=== PATIENT | female | born 1930 | race Caucasian/White ===

== ENCOUNTER → 2017-04-27 | Outpatient (CLI) | payer MEDICARE, OTHER ==
[~2017-04-27] MED LIST: DENOSUMAB 60 MG/ML 1 ML SYRINGE SQ ONE
[2017-04-27 10:47] VITALS: BP 165/72; PULSE 85; RESP 16; TEMP 98.3
== END ==
LOC: PROCWHC3 10:22
PROVIDERS: ATTEND Family Medicine
DX: M81.0 Age-related osteoporosis without current pathological fracture (principal)
CPT/HCPCS: 96372; J0897

== ENCOUNTER → 2017-10-27 | Outpatient (CLI) | payer MEDICARE, OTHER ==
[2017-10-27 10:07] LABS: HCT 36.1 % (34.0-46.0); HGB 11.9 gm/dL (11.4-16.0); MCH 31.5 pg (25.0-35.0); MCHC 32.9 g/dL (31.0-37.0); MCV 95.7 fL (80.0-100.0); Mean Platelet Volume 7.9; Platelet Count 234 k/uL (150-450); RBC 3.77 m/uL (3.80-5.40); RDW 13.4 % (11.5-15.5); WBC 6.9 k/uL (3.8-10.6)
[2017-10-27 10:35] LABS: Albumin 4.2 g/dL (3.5-5.0); Calcium 10.1 mg/dL (8.4-10.2); INR 1.1 (<1.2); Partial Thromboplastin Time 22.5 sec (22.0-30.0); Potassium 3.9 mmol/L (3.5-5.1); Prothrombin Time 10.6 sec (9.0-12.0); Total Bilirubin 0.4 mg/dL (0.2-1.3); Total Protein 7.3 g/dL (6.3-8.2)
== END | disposition home or self-care (01) ==
LOC: LABPAT 09:14
PROVIDERS: ATTEND Orthopaedic Surgery
DX: Z01.818 Encounter for other preprocedural examination (principal); Z01.812 Encounter for preprocedural laboratory examination
CPT/HCPCS: 36415; 80053; 85027; 85610; 85730; 87070

== ENCOUNTER → 2017-10-27 | Outpatient (CLI) | payer MEDICARE, OTHER ==
[~2017-10-27] MED LIST changes: -DENOSUMAB 60 MG/ML 1 ML SYRINGE SQ ONE; +REGADENOSON 0.4 MG/5 ML SYRINGE IV ONE
--- NOTE | 2017-10-27 11:18 | EST ---
EXERCISE STRESS DATE OF SERVICE: 10/27/2017 AGE: 87 SEX: Female HT: 4'10" WT: 175 pounds PROTOCOL: Lexiscan Cardiolite STAGE: DURATION OF EXERCISE: HEART RATE REST: 86 BLOOD PRESSURE REST: 203/118 MAXIMUM HEART RATE ACHIEVED: 97 MAXIMUM BLOOD PRESSURE: 224/89 85% MPHR: 113 100% MPHR: 133 METS: INDICATIONS: Pre-op cardiac evaluation. CLINICAL INFORMATION: Baseline EKG shows sinus rhythm, normal axis, normal intervals. The patient was given intravenous Lexiscan as per protocol. Did not have chest pain or diagnostic ST-segment depression. CONCLUSIONS: 1. Negative stress test by EKG criteria. 2. Cardiolite portion of the stress test will be reported separately. MMODL / IJN: [id number] /
--- NOTE | 2017-10-27 15:02 | NM ---
EXAMINATION TYPE: NM stress lexiscan cardiolite DATE OF EXAM: 10/27/2017 COMPARISON: NONE HISTORY: Chest pain TECHNIQUE: After the intravenous administration of 10.21 mCi Tc 99m Sestamibi - Cardiolite resting S PECT images acquired 45 minutes post injection. The patient received 0.4mg Lexiscan, 28 mCi Tc 99m Sestamibi - Stress images obtained 30 minutes post injection FINDINGS: Review of stress and rest SPECT images demonstrates no distinct perfusion abnormality. Gated analysi s shows normal wall motion with an estimated left ventricular ejection fraction of 87 %. IMPRESSION: No scintigraphic evidence for reversible ischemia.
== END | disposition home or self-care (01) ==
LOC: RADNMMAIN 08:43
PROVIDERS: ATTEND Internal Medicine Cardiovascular Disease
DX: I25.119 Atherosclerotic heart disease of native coronary artery with unspecified angina pectoris (principal)
CPT/HCPCS: 93017; 78452; A9500; J2785

== ENCOUNTER 2017-11-13 10:31 | Inpatient (IN) | payer MEDICARE, OTHER ==
[2017-11-06 12:48] VITALS: BMI 36.3
[~2017-11-13 10:31] MED LIST changes: +DEXAMETHASONE SOD PHOSPHATE 10 MG/ML 1 ML VIAL IV ONE; +HYDROmorphone 0.5 MG/0.5 ML SYRINGE IVP PRN; +LIDOCAINE 1% 20 ML VIAL (10MG/ML) FOR IV START INTRADERMA PRN; +MELOXICAM 7.5 MG TAB PO ONE; +MIDAZOLAM 2 MG/2 ML VIAL IV PRN; +ONDANSETRON 4 MG/2 ML VIAL IVP ONE; -REGADENOSON 0.4 MG/5 ML SYRINGE IV ONE; +SCOPOLAMINE 1.5MG/72HR PATCH TRANSDERM ONE; +TRANEXAMIC ACID 1,000 MG in SODIUM CHLORIDE 0.9% 50 ML IVPB ONE; +ceFAZolin 2 GM in SODIUM CHLORIDE 0.9% 100 ML IVPB ONE; +ceFAZolin IN SWFI 2 GM/20 ML SYRINGE IVP ONE
[2017-11-13] MEDS: ACETAMINOPHEN TAB 500 MG TAB PO ONE ×2 (13:34→22:13)
[2017-11-13] MEDS: LACTATED RINGERS 1,000 ML IV SCH (13:58)
[2017-11-13] MEDS ORDERED: ROPIVACAINE 246.25 MG, EPINEPHrine 0.5 MG, KETOROLAC 30 MG, cloNIDine HCL/PF 80 MCG, WA... MISCELLANE ONE ×5 (15:40)
[2017-11-13] MEDS ORDERED: LACTATED RINGERS 1,000 ML IV ONE ×2 (17:03)
[2017-11-13] MEDS ORDERED: ACETAMINOPHEN TAB 325 MG TAB PO PRN (18:50)
[2017-11-13] MEDS ORDERED: HYDROcodone/APAP 5-325MG 1 EACH TAB PO PRN (18:50)
[2017-11-13] MEDS ORDERED: BISACODYL 10 MG SUPP RECTAL PRN (18:50)
[2017-11-13] MEDS ORDERED: NA PHOS,M-B/NA PHOS,DI-BA 133 ML ENEMA RECTAL PRN (18:50)
[2017-11-13] MEDS ORDERED: HYDROmorphone 4 MG/ML 1 ML SYRINGE IVP PRN ×4 (18:50)
[2017-11-13] MEDS ORDERED: MAGNESIUM HYDROXIDE 2,400 MG/10 ML CUP PO PRN (18:50)
[2017-11-13] MEDS ORDERED: NALOXONE 0.4 MG/ML 1 ML VIAL IV PRN (18:50)
--- NOTE | 2017-11-13 19:25 | XR ---
EXAMINATION TYPE: XR knee limited RT DATE OF EXAM: 11/13/2017 CLINICAL HISTORY: Right knee pain and arthritis status post total knee replacement. TECHNIQUE: Portable AP and crosstable lateral views of the right knee are obtained immediately posto peratively. COMPARISON: None FINDINGS: Metallic hardware from total right knee arthroplasty is seen and appears satisfactory in a lignment and position. There is evidence of recent surgery with diffuse subcutaneous gas and soft ti ssue swelling noted. IMPRESSION: METALLIC HARDWARE FROM TOTAL RIGHT KNEE ARTHROPLASTY IS SATISFACTORY IN ALIGNMENT.
[2017-11-13] MEDS: SENNOSIDES-DOCUSATE SODIUM 1 EACH TAB PO SCH (22:42)
[2017-11-13] MEDS: CYCLOBENZAPRINE 5 MG TAB PO SCH (22:44)
[2017-11-13] MEDS: ATORVASTATIN 10 MG TAB PO SCH (22:46)
[2017-11-13] MEDS: LATANOPROST 0.005% OPHTH DROPS 2.5 ML BTL RIGHT EYE SCH (22:46)
[2017-11-13] MEDS: HYDROcodone/APAP 5-325MG 1 EACH TAB PO PRN (22:47)
[2017-11-13] MEDS: LOSARTAN 25 MG TAB PO SCH (22:47)
[2017-11-13] MEDS: POTASSIUM CHLORIDE ER 10 MEQ TAB.ER.PRT PO SCH (22:47)
[2017-11-13] MEDS: rOPINIRole HCL 4 MG TABLET PO SCH (22:47)
--- NOTE | 2017-11-13 23:02 | CONS ---
CONSULTATION DATE OF CONSULTATION: 11/13/2017 REASON FOR CONSULTATION: Medical management requested by Dr. Lomeli. CONSULTATION: This is a pleasant 87-year-old patient of Dr. Stroud who undergone a right total knee arthroplasty. Post procedure, pain is controlled. No nausea or vomiting. Did tolerate her supper. No chest pain. Chronic stable medical conditions include GERD, hypertension, hypothyroid, restless legs syndrome, chronic lymphedema in both lower extremities, anxiety, hyperlipidemia, coronary artery disease with stent. REVIEW OF SYSTEMS: CONSTITUTIONAL: None. HEENT: None. RESPIRATORY: None. CARDIOVASCULAR: None. GASTROINTESTINAL: Heartburn. GENITOURINARY: None. MUSCULOSKELETAL: Arthritic pain in different joints. DERMATOLOGICAL: None. HEMATOLOGICAL: None. LYMPHATICS: Lower extremity lymphedema. PSYCHIATRY: Anxiety, controlled. NEUROLOGICAL: Restless legs syndrome. PAST MEDICAL HISTORY: 1. GERD. 2. Hypertension. 3. Osteoarthritis. 4. Hypothyroid. 5. Restless legs syndrome. 6. Gait dysfunction; uses a walker. 7. Bilateral lower extremity lymphedema. 8. Coronary artery disease with stent. 9. Anxiety. 10.Hyperlipidemia. PAST SURGICAL HISTORY: 1. Back surgery. 2. Cardiac cath with stent. 3. Joint replacement. 4. Cataract. 5. Left total knee. 6. Surgery on the lower extremity for veins. PAST PSYCH HISTORY: History of anxiety. SOCIAL HISTORY: Does not smoke or drink alcohol. Lives by herself. FAMILY HISTORY: Granddaughter had breast cancer. HOME MEDICATIONS: 1. Ultram 50 mg p.o. q.i.d. p.r.n. 2. Requip 4 mg p.o. at bedtime. 3. Prolia 1 dose IM as directed. 4. Potassium 10 mEq p.o. b.i.d. 5. Omeprazole 40 mg p.o. daily. 6. Movantik 25 mg p.o. daily. 7. Toprol XL 50 mg p.o. daily. 8. Mevacor 40 mg at bedtime. 9. Cozaar 25 mg p.o. at bedtime. 10.Synthroid 75 mcg p.o. daily. 11.Xalatan 0.005% one drop to right eye at bedtime. 12.Vicodin 5 one tablet q.6 p.r.n. 13.Hydrochlorothiazide 25 mg p.o. daily. 14.Lasix 40 mg p.o. daily. 15.Flexeril 5 mg at bedtime. 16.Vitamin D3 5000 units p.o. daily. 17.Caltrate 600 with vitamin D one tablet daily. 18.Fiorinal p.r.n. 19.Aspirin 81 mg p.o. daily. ALLERGIES: 1. IV CONTRAST DYE. 2. PENICILLIN. 3. SULFA. 4. BACTRIM. PHYSICAL EXAMINATION: Temperature 97.6, pulse 80, respiration 18, blood pressure 148/86, pulse ox 92% on 3 L. GENERAL APPEARANCE: Well built, BMI 36.4. Propped up. Comfortable, awake. EYES: Pupils equal. Conjunctivae normal. HEENT: External appearance of nose and ears normal. Oral cavity normal. NECK: Short, thick. JVD unable to assess. RESPIRATORY: Effort normal. LUNGS: Distant breath sounds. CARDIOVASCULAR: Heart sounds muffled. No edema. ABDOMEN: Soft, nontender. Liver and spleen not palpable. No mass palpable. LYMPHATIC: No lymph node palpable in neck or axillae. PSYCHIATRY: Alert and oriented x3. Mood and affect normal. NEUROLOGICAL: Pupils equal. Cranial nerves grossly intact. Power and sensation grossly intact. EXTREMITIES: Right knee in a dressing. INVESTIGATIONS: No blood work. Potassium 4.1. ASSESSMENT: 1. Right total knee arthroplasty. 2. Gastroesophageal reflux disease. 3. Essential hypertension. 4. Primary osteoarthritis. 5. Hypothyroid. 6. Restless legs syndrome. 7. Gait dysfunction; at baseline uses a walker. 8. Chronic bilateral lower extremity lymphedema. 9. Coronary artery disease with stent in place. 10.Anxiety not otherwise specified. 11.Hyperlipidemia. PLAN: Home medications to be resumed. Patient getting Arixtra for DVT prophylaxis. Pain control is in place. Care was discussed with the patient. Questions were answered. Patient should follow up with Dr. Stroud on discharge. Thank you, Dr. Lomeli. MMODL / IJN: [id number] /
[2017-11-14] MEDS: ceFAZolin IN SWFI 2 GM/20 ML SYRINGE IVP SCH ×2 (00:05→10:20)
[2017-11-14] MEDS: ONDANSETRON 4 MG/2 ML VIAL IVP PRN ×2 (00:05→12:06)
[2017-11-14] MEDS: HYDROcodone/APAP 5-325MG 1 EACH TAB PO PRN ×4 (04:10→22:00)
[2017-11-14] MEDS: LACTATED RINGERS 1,000 ML IV SCH (05:19)
[2017-11-14] MEDS: LEVOTHYROXINE 75 MCG TAB PO SCH (06:04)
[2017-11-14 07:29] LABS: Basophils % (A) 0 %; Eosinophils % (A) 0 %; HCT 33.2 % (34.0-46.0); HGB 10.5 gm/dL (11.4-16.0); Lymphocytes # (A) 1.1 k/uL (1.0-4.8); Lymphocytes % (A) 11 %; MCH 31.3 pg (25.0-35.0); MCHC 31.7 g/dL (31.0-37.0); MCV 98.7 fL (80.0-100.0); Mean Platelet Volume 7.6; Monocytes # (A) 0.7 k/uL (0-1.0); Monocytes % (A) 7 %; Neutrophils # (A) 8.1 k/uL (1.3-7.7); Neutrophils % (A) 80 %; Platelet Count 250 k/uL (150-450); RBC 3.37 m/uL (3.80-5.40); RDW 12.2 % (11.5-15.5); WBC 10.1 k/uL (3.8-10.6)
--- NOTE | 2017-11-14 08:16 | P.OP ---
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 Moderate osteoporosis right knee OPERATION: Right knee cemented total replacement arthroplasty. ANESTHESIA: Spinal ESTIMATED BLOOD LOSS: 150 ml. DIRECTOR UNDERWRITER SALES: Sarah Fregoso PA-C (assistance with: patient positioning, retraction, exposure, hemostasis, leg positioning, implantation, irrigation, closure, dressing) COMPLICATIONS: None apparent. COMPONENTS IMPLANTED: Persona system from [employer] INDICATIONS: Mrs. Levi is a 87 year old female with a history of right knee osteoarthritis and moderate genu valgum. The operation of knee replacement has been discussed at length in the office, as well as potential risks and complications. These are inclusive of, but not limited to: bleeding, infection , scarring, discomfort, blood vessel and nerve damage, need for further surgery , failure to relieve symptoms, persistence, recurrence, or worsening of problems , loosening, dislocation, wear, blood clot, pulmonary embolism, , gait dysfunction, stiffness, and other risks as discussed in the office. The patient elects to proceed and the consent form has been signed. PROCEDURE: The patient was taken to the operating room and positioned on the operating room table in the supine position. Anesthesia was initiated. Care was taken to make sure that all pressure points were adequately padded. The operative lower extremity was prepped and draped in the usual aseptic fashion using ChloraPrep. Ioban drape was used for the case and the patient received intravenous antibiotics within one hour of the incision. A pneumotourniquet and leg nuñez were used for the case. The limb was exsanguinated with an Esmarch bandage and the tourniquet was inflated to 350 mmHg. Time-out was called confirming the patients identity, side, procedure and administration of tranexamic acid and antibiotics. The incision was then created midline directly over the knee, carried down through skin and into the abundant subcutaneous tissues and down to fascia. Full thickness subcutaneous medial flap was developed. Medial parapatellar arthrotomy was performed and the interior of the knee was inspected. There was end-stage osteoarthritis of the knee with a mild to moderate genu valgum type deformity. Also noted was moderate to severe osteoporosis , as evidenced by diminished cortical bone density as well as moderate softening of the cancellus bone, discovered during the course of the operation. The fat pad was excised and limited proximal medial release on the tibia was completed using meticulous dissection. The anterior cruciate ligament was taken down. The exposure was excellent. The knee was flexed 90 degrees and the patella was retracted laterally. A spot was chosen on the femur approximately 1 cm anterior to the posterior cruciate ligament insertion and an intramedullary hole was created within the femur. The intramedullary guide was then set to 5 degrees of valgus. The distal cutting block was attached and pinned into position. An appropriate amount of distal femoral resection was set. The oscillating saw was then used to make the distal femoral cut. This cut was confirmed to be flat with the flat end of an osteotome. The retractors were placed around the tibia and the tibial surface was addressed. The angle and depth of resection was adjusted using an extramedullary cutting guide. The guide had a built-in 3 degree posterior slope cut. Once the cutting guide was adjusted appropriately and in line with the axis of the tibia and confirmed to be in good position in relation to the second metatarsal and transmalleolar axis, the tibial cut was then created with protection of the posterior neurovascular structures and the collateral ligaments. The tibial cut surface was removed and sized. Femoral sizing was then accomplished using anterior referencing. Care was taken to analyze the posterior condyles for signs of deficiency or severe wear, and adjustments to the guide were made, as appropriate. Moderate to severe posterior spurring was noted, as well as a moderately to severely tight posterior cruciate ligament which therefore was released, see below. 3 degree external rotation pins were placed. The cutting jig for the femur was applied to these pins. The planned cuts were further analyzed prior to performing them with the oscillating saw. No femoral notching was produced. Bone fragments were removed and the cut surfaces were finished, as necessary, with a reciprocating saw. Spacer block technique was then used to confirm that the flexion and extension gaps were equal. Soft tissue releases and adjustment of the tibial and/or femoral cuts were made, as necessary, until the gaps were equal. This included release of the posterior cruciate ligament, which was tight in this patient and , if left unreleased, would have resulted in poor kinematics and possibly early loosening. The femur was then further finished for a posterior cruciate ligament substituting component. Patellar resurfacing was performed using a reamer. The size of the required patellar component was estimated and the patellar surface was then reamed down to a residual thickness which would recreate the [place] thickness with the component. The placement of the patellar component was influenced by the degree of patellar subluxation, if any, noted on the preoperative x-rays. Prior to placing trial components, anesthetic solution consisting of ropivicaine with epinephrine, ketorolac, and clonidine was injected carefully and methodically in a grid pattern using aspiration technique into the soft tissue around the knee circumferentially, starting with the deeper tissues first and progressing to fascia, and then finally the skin/subcutaneous tissue. Particular care was taken when injecting the posterior capsule. The trial components were inserted. The tibial tray was allowed to self center and the patella was noted to track very well. The position of the tibial component was marked and the tibia was then finished for a stemmed tibial component. Cement was mixed on the back table and applied to the final components. Trial components were removed and the cut surfaces of the bone were pulse lavaged thoroughly and dried. Cement was then applied to the tibial surface and pressurized into the surface using finger pressurization technique. The tibial component was then applied and excess cement was removed after it was impacted securely and noted to be flush with the cut surface. In similar fashion, the cement was applied to the cut femoral surface, pressurized in using finger pressurization and the component was impacted into place. Excess cement was removed. The polyethylene spacer was then implanted and locked into position. The patellar component was then applied in similar technique and a patellar clamp was used to hold the patella in place as the cement hardened. Once the cement had fully hardened, the knee was reinspected. Any other cement extrusion was removed and final kinematic testing showed range of motion from 0 to 130 degrees with excellent stability, both medially and laterally and appropriate alignment of the leg. Patellar tracking was excellent. The knee was then thoroughly pulse lavaged with normal saline. The tourniquet was deflated and hemostasis was obtained with electrocautery and IV tranexamic acid, 1 g given at the start of the operation and 1 g at the start of closure. Closure was with #2 Ethibond in the fascia and supplemented with #2 Quill, 2-0 Vicryl suture was used for the subcutaneous tissues and 3-0 Quill for the skin. Dermabond/Steri-Strips were then applied. A lightly compressive dressing was applied using Webril and an Albino wrap. The patient was then transferred to [facility] and taken to the recovery room in stable condition. Sponge and needle counts were correct.
[2017-11-14] MEDS: METOPROLOL SUCCINATE (ER) 50 MG TAB.ER.24H PO SCH (09:20)
[2017-11-14] MEDS: PANTOPRAZOLE 40 MG TABLET PO SCH (09:21)
[2017-11-14] MEDS: MELOXICAM 7.5 MG TAB PO SCH (09:21)
[2017-11-14] MEDS: FUROSEMIDE 40 MG TAB PO SCH (09:21)
[2017-11-14] MEDS: POTASSIUM CHLORIDE ER 10 MEQ TAB.ER.PRT PO SCH ×2 (09:22→22:01)
[2017-11-14] MEDS: FONDAPARINUX 2.5 MG/0.5 ML SYRINGE SQ SCH (09:22)
[2017-11-14] MEDS: Naloxegol Oxalate [Movantik] 25 MG PO SCH (09:22)
--- NOTE | 2017-11-14 10:56 | P.PN ---
Subjective Progress Note Date: 11/14/17 Principal diagnosis: Status post right total knee arthroplasty This is a 87 year-old female post right total knee arthroplasty. This is post- op day 1. The patient was evaluated in the recliner chair at the bedside today. The patient denies nausea, vomiting, abdominal pain, shortness of breath , and chest pain this morning. She states her pain is controlled at this time. The patient has been up with physical therapy. Objective - Vital Signs Vital signs: Vital Signs Temp 98.3 F 11/14/17 07:00 Pulse 75 11/14/17 07:00 Resp 14 11/14/17 07:00 BP 157/69 11/14/17 07:00 Pulse Ox 97 11/14/17 07:00 Intake & Output 11/13/17 11/14/17 11/14/17 18:59 06:59 18:59 Intake Total 1700 240 Output Total 150 Balance 1550 240 Intake: IV 1700 0 Intake, IV Titration 240 Amount Lactated Ringers 1,000 ml 240 @ 20 mls/hr IV .Q24H FREDRICK Rx#:[id number] Output: Estimated Blood Loss 150 Other: # Voids 1 - Exam The patient does not appear in acute distress. Alert and orientated x3. Dressing is clean dry and intact. Incision appears fine with no erythema or active drainage. Calf is soft and nontender. Good foot and ankle motion without difficulty. Sensation and circulatory status is intact. - Labs CBC & Chem 7: 11/14/17 06:39 11/13/17 13:50 Labs: Abnormal Lab Results - Last 24 Hours (Table) 11/14/17 Range/Units 06:39 RBC 3.37 L (3.80-5.40) m/uL Hgb 10.5 L (11.4-16.0) gm/dL Hct 33.2 L (34.0-46.0) % Neutrophils # 8.1 H (1.3-7.7) k/uL Assessment and Plan (1) Primary localized osteoarthritis of right knee Current Visit: Yes Status: Acute Code(s): M17.11 - UNILATERAL PRIMARY OSTEOARTHRITIS, RIGHT KNEE SNOMED Code(s): 527740963 (2) Status post total right knee replacement Current Visit: Yes Status: Acute Code(s): Z96.651 - PRESENCE OF RIGHT ARTIFICIAL KNEE JOINT SNOMED Code(s): 7831975213909 Plan: 1. Continue pain control 2. Anticoagulation with Arixtra 3. Continue physical therapy and ambulation 4. Anticipate discharge to skilled rehab on
--- NOTE | 2017-11-14 12:57 | XR ---
EXAMINATION TYPE: XR chest 1V DATE OF EXAM: 11/14/2017 COMPARISON: NONE HISTORY: Pain TECHNIQUE: Single frontal view of the chest is obtained. FINDINGS: Severe arthropathy of the shoulders greater on the right. Subsegmental consolidation at javed th lung bases. Atherosclerotic change aorta. No pneumothorax. Could not exclude small nodules in the right midlung. IMPRESSION: 1. Bibasilar atelectasis or early infiltrate. 2. Question of right-sided pulmonary nodules. CT chest recommended.
[2017-11-14] MEDS ORDERED: CALCIUM CARBONATE 500 MG CHEWABLE PO PRN (14:11)
[2017-11-14] MEDS: ATORVASTATIN 10 MG TAB PO SCH (22:00)
[2017-11-14] MEDS: CYCLOBENZAPRINE 5 MG TAB PO SCH (22:01)
[2017-11-14] MEDS: LOSARTAN 25 MG TAB PO SCH (22:01)
[2017-11-14] MEDS: rOPINIRole HCL 4 MG TABLET PO SCH (22:01)
[2017-11-14] MEDS: SENNOSIDES-DOCUSATE SODIUM 1 EACH TAB PO SCH (22:01)
[2017-11-14] MEDS: LATANOPROST 0.005% OPHTH DROPS 2.5 ML BTL RIGHT EYE SCH (22:10)
--- NOTE | 2017-11-15 01:39 | PN ---
PROGRESS NOTE DATE OF SERVICE: 11/14/17 PRESENTING COMPLAINT: Knee surgery. INTERVAL HISTORY: Patient is status post right knee surgery, doing better. No new events. Did work with therapy. No chest pain. Did tolerate a diet. REVIEW OF SYSTEMS: Done for constitutional, cardiovascular, GI, pulmonary, relevant findings as above. CURRENT MEDICATIONS: Reviewed. EXAMINATION: Temperature 97.9, pulse 65, respiratory rate 16, blood pressure 166/81, pulse ox 95% on room air. General appearance: Sitting up comfortable. Eyes: Pupils equal. Conjunctivae are normal. HEENT: External appearance of nose and ears normal. Oral cavity normal. Neck JVD not raised. Mass not palpable. Respiratory effort normal. Lungs are clear. Cardiovascular: Heart sounds muffled, no edema. ABDOMEN: Soft. Liver and spleen not palpable. Psychiatry: Alert and oriented x3. Mood and affect normal. INVESTIGATIONS: White count 10.1, hemoglobin 10.5. ASSESSMENT: 1. Right total knee arthroplasty. 2. Gastroesophageal reflux disease. 3. Essential hypertension. 4. Primary osteoarthritis. 5. Hypothyroid. 6. Restless legs syndrome. 7. Gait dysfunction at baseline uses a walker. 8. Chronic bilateral lower extremity lymphedema. 9. Coronary artery disease with prior history of stent. 10.Anxiety, not otherwise specified. 11.Hyperlipidemia. PLAN: Patient is stable. Continue current medication and treatment plan. Should follow with family doctor upon discharge. MMODL / IJN: [id number] /
[2017-11-15] MEDS: HYDROcodone/APAP 5-325MG 1 EACH TAB PO PRN ×3 (06:01→22:44)
[2017-11-15] MEDS: hydrOXYzine PAMOATE 25 MG CAP PO PRN ×3 (06:01→22:44)
[2017-11-15] MEDS: LEVOTHYROXINE 75 MCG TAB PO SCH (06:01)
[2017-11-15 07:34] LABS: Basophils # (A) 0.1 k/uL (0-0.2); Basophils % (A) 1 %; Eosinophils # (A) 0.1 k/uL (0-0.7); Eosinophils % (A) 1 %; HCT 33.9 % (34.0-46.0); HGB 10.8 gm/dL (11.4-16.0); Lymphocytes # (A) 1.2 k/uL (1.0-4.8); Lymphocytes % (A) 13 %; MCH 30.8 pg (25.0-35.0); MCHC 31.8 g/dL (31.0-37.0); MCV 96.8 fL (80.0-100.0); Mean Platelet Volume 7.5; Monocytes # (A) 0.8 k/uL (0-1.0); Monocytes % (A) 9 %; Neutrophils # (A) 6.6 k/uL (1.3-7.7); Neutrophils % (A) 75 %; Platelet Count 217 k/uL (150-450); RDW 12.3 % (11.5-15.5); WBC 8.9 k/uL (3.8-10.6)
[2017-11-15] MEDS: LACTATED RINGERS 1,000 ML IV SCH (08:54)
[2017-11-15] MEDS: METOPROLOL SUCCINATE (ER) 50 MG TAB.ER.24H PO SCH (09:48)
[2017-11-15] MEDS: PANTOPRAZOLE 40 MG TABLET PO SCH (09:48)
[2017-11-15] MEDS: POTASSIUM CHLORIDE ER 10 MEQ TAB.ER.PRT PO SCH ×2 (09:48→21:35)
[2017-11-15] MEDS: Naloxegol Oxalate [Movantik] 25 MG PO SCH (09:49)
[2017-11-15] MEDS: FONDAPARINUX 2.5 MG/0.5 ML SYRINGE SQ SCH (09:49)
[2017-11-15] MEDS: FUROSEMIDE 40 MG TAB PO SCH (09:49)
[2017-11-15] MEDS: MELOXICAM 7.5 MG TAB PO SCH (09:49)
--- NOTE | 2017-11-15 11:48 | P.PN ---
Subjective Progress Note Date: 11/15/17 Principal diagnosis: Status post total right knee arthroplasty. This is an 87-year-old female who is status post total right knee arthroplasty. She is doing well from an orthopedic standpoint. She is rating her pain 5/10 today. She has no new complaints or concerns. Objective - Vital Signs Vital signs: Vital Signs Temp 98.2 F 11/15/17 07:00 Pulse 97 11/15/17 07:00 Resp 16 11/15/17 07:00 BP 177/76 11/15/17 07:00 Pulse Ox 93 L 11/15/17 07:00 Intake & Output 11/14/17 11/15/17 11/15/17 18:59 06:59 18:59 Intake Total 880 400 Balance 880 400 Intake: Oral 880 400 Other: Voiding Method Bedside Commode # Voids 3 2 - Exam This is a pleasant 87-year-old female in no acute distress. She is alert and oriented 3. Exam of the right knee reveals that her dressing is clean, dry and intact. She has full foot and ankle motion without difficulty or pain. There is no calf pain with palpation. Neurovascular status to the lower extremity is intact. - Labs CBC & Chem 7: 11/15/17 06:48 11/13/17 13:50 Labs: Abnormal Lab Results - Last 24 Hours (Table) 11/15/17 Range/Units 06:48 RBC 3.50 L (3.80-5.40) m/uL Hgb 10.8 L (11.4-16.0) gm/dL Hct 33.9 L (34.0-46.0) % Assessment and Plan (1) Osteoarthritis of right knee Current Visit: Yes Status: Acute Code(s): M17.11 - UNILATERAL PRIMARY OSTEOARTHRITIS, RIGHT KNEE SNOMED Code(s): 163241665885408 (2) Status post total right knee replacement Current Visit: Yes Status: Acute Code(s): Z96.651 - PRESENCE OF RIGHT ARTIFICIAL KNEE JOINT SNOMED Code(s): 7551335243058 Plan: The clinical findings are discussed the patient. We're awaiting transfer to inpatient rehab, most likely tomorrow. Continue care and physical therapy.
[2017-11-15] MEDS ORDERED: HYDROmorphone 2 MG TAB PO PRN ×3 (15:41→15:43)
[2017-11-15] MEDS ORDERED: HYDROmorphone 4 MG TABLET PO PRN (15:44)
[2017-11-15] MEDS: ATORVASTATIN 10 MG TAB PO SCH (21:35)
[2017-11-15] MEDS: rOPINIRole HCL 4 MG TABLET PO SCH (21:35)
[2017-11-15] MEDS: LATANOPROST 0.005% OPHTH DROPS 2.5 ML BTL RIGHT EYE SCH (21:35)
[2017-11-15] MEDS: LOSARTAN 25 MG TAB PO SCH (21:35)
[2017-11-15] MEDS: CYCLOBENZAPRINE 5 MG TAB PO SCH (21:35)
[2017-11-15] MEDS: SENNOSIDES-DOCUSATE SODIUM 1 EACH TAB PO SCH (21:36)
--- NOTE | 2017-11-15 23:44 | PN ---
PROGRESS NOTE DATE OF SERVICE: 11/15/2017 PRESENTING COMPLAINT: Knee surgery. INTERVAL HISTORY: Patient is status post right knee surgery. Continues to do better. No new issues. Tolerating a diet. Did work with Therapy. REVIEW OF SYSTEMS: Done for constitutional, cardiovascular, GI, pulmonary, musculoskeletal; relevant findings as above. CURRENT MEDICATIONS: Reviewed. EXAMINATION: Temperature 99, pulse 76, respirations 16, blood pressure 164/74, pulse ox 100%. GENERAL APPEARANCE: Propped up comfortable. EYES: Pupils equal. Conjunctivae normal. HEENT: External appearance of nose and ears normal. Oral cavity normal. NECK: JVD not raised. Mass not palpable. RESPIRATORY: Effort normal. Lungs are clear. CARDIOVASCULAR: Heart sounds muffled. No edema. ABDOMEN: Soft, nontender. Liver and spleen not palpable. PSYCHIATRY: Alert and oriented x3. Mood and affect normal. INVESTIGATIONS: Hemoglobin 10.8. ASSESSMENT: 1. Right total knee arthroplasty. 2. Gastroesophageal reflux disease. 3. Essential hypertension. 4. Primary osteoarthritis. 5. Hypothyroid. 6. Restless legs syndrome. 7. Gait dysfunction, at her baseline uses a walker. 8. Chronic bilateral lower extremity lymphedema. 9. Coronary artery disease with prior history of stent. 10.Anxiety, not otherwise specified. 11.Hyperlipidemia. PLAN: Continue current medication and treatment plan. Care was discussed with the patient. MMJAIMEL / REDDYN: [id number] /
[2017-11-16 01:46] VITALS: TEMP 98.3
[2017-11-16] MEDS: LACTATED RINGERS 1,000 ML IV SCH (01:52)
[2017-11-16] MEDS: LEVOTHYROXINE 75 MCG TAB PO SCH (05:39)
[2017-11-16] MEDS: HYDROcodone/APAP 5-325MG 1 EACH TAB PO PRN ×2 (06:56→13:53)
[2017-11-16] MEDS: hydrOXYzine PAMOATE 25 MG CAP PO PRN ×2 (06:56→13:53)
[2017-11-16 07:03] LABS: Basophils # (A) 0.1 k/uL (0-0.2); Basophils % (A) 1 %; Eosinophils # (A) 0.3 k/uL (0-0.7); Eosinophils % (A) 4 %; HCT 33.5 % (34.0-46.0); HGB 10.7 gm/dL (11.4-16.0); Lymphocytes # (A) 1.4 k/uL (1.0-4.8); Lymphocytes % (A) 16 %; MCH 30.4 pg (25.0-35.0); MCV 94.9 fL (80.0-100.0); Mean Platelet Volume 7.6; Monocytes # (A) 0.8 k/uL (0-1.0); Monocytes % (A) 10 %; Neutrophils # (A) 5.5 k/uL (1.3-7.7); Neutrophils % (A) 66 %; Platelet Count 221 k/uL (150-450); RBC 3.53 m/uL (3.80-5.40); RDW 12.2 % (11.5-15.5); WBC 8.3 k/uL (3.8-10.6)
--- NOTE | 2017-11-16 08:02 | P.DS ---
Providers Date of admission: 11/13/17 13:09 Expected date of discharge: 11/16/17 Attending physician: Bradley Lomeli Consults: 11/13/17 18:50 Consult Physician Routine Consulting Provider: Earl Echeverria Consult Reason/Comments: Medical Management Do you want consulting provider notified?: Yes Primary care physician: Jaskaran Stroud - Discharge Diagnosis(es) (1) Osteoarthritis of right knee Current Visit: Yes Status: Acute (2) Status post total right knee replacement Current Visit: Yes Status: Acute Hospital Course: This is an 87-year-old female who was last seen with complaint of continued right knee pain. The patient has a known history of degenerative arthritis of the right knee and presents to discuss surgical options. After discussion and consideration the patient elects to proceed with total right knee arthroplasty. The patient is seen preoperatively by Dr. Stroud and cleared for surgery. The patient is admitted to [facility] for total right knee arthroplasty. The procedure is performed without complication or sequelae. Patient is fairly doing well postoperatively. She is having some difficulty with independent ADLs and independent ambulation. Vital signs are stable at discharge. Labs are stable at discharge. It is recommended that she go to inpatient rehab. The patient is discharged to inpatient rehab on postop day #3 pending medical clearance. Please see orders and refer to the med rec for accurate list of medications. Plan - Discharge Summary Discharge Rx Participant: Yes New Discharge Prescriptions: New Aspirin 325 mg PO BID #120 tab Fondaparinux [Arixtra] 2.5 mg SQ DAILY #5 syringe HYDROcodone/APAP 5-325MG [[place] 5-325] 1 - 2 each PO Q4-6H PRN #90 tab PRN Reason: Pain Sennosides-Docusate Sodium [Senokot-S] 1 tab PO BID #60 tablet No Action Metoprolol Succinate (ER) [Toprol Xl] 50 mg PO DAILY Hydrochlorothiazide [Hydrodiuril] 25 mg PO DAILY traMADol HCL [Ultram] 50 mg PO QID PRN PRN Reason: Pain Naloxegol Oxalate [Movantik] 25 mg PO DAILY Lovastatin [Mevacor] 40 mg PO HS Hydrocodone/Acetaminophen [Vicodin 5-300 mg Tablet] 1 tab PO Q6HR PRN PRN Reason: Pain rOPINIRole HCL [Requip] 4 mg PO HS Levothyroxine Sodium [Synthroid] 75 mcg PO DAILY Cyclobenzaprine [Flexeril] 5 mg PO HS Butalb/Asprin/Caff 50-325-40Mg [Fiorinal 50-325-40 MG] 1 - 2 cap PO DIRECTED PRN PRN Reason: Pain Potassium Chloride ER [K-Dur 10] 10 meq PO BID Losartan [Cozaar] 25 mg PO HS Latanoprost Ophth [Xalatan 0.005%] 1 drops RIGHT EYE HS Cholecalciferol [Vitamin D3] 5,000 unit PO DAILY Prolia (Unknown Dose) 1 dose IM DIRECTED Omeprazole 40 mg PO DAILY Spike/D3/Mag11/Zinc/Carrot Tier/Raffi/Bor [Caltrate 600+D Plus Tablet] 1 each PO DAILY Aspirin [Adult Low Dose Aspirin EC] 81 mg PO DAILY Furosemide [Lasix] 40 mg PO DAILY Discharge Medication List Aspirin [Adult Low Dose Aspirin EC] 81 mg PO DAILY 11/06/17 [History] Butalb/Asprin/Caff 50-325-40Mg [Fiorinal 50-325-40 MG] 1 - 2 cap PO DIRECTED PRN 11/06/17 [History] Spike/D3/Mag11/Zinc/Carrot Tier/Raffi/Bor [Caltrate 600+D Plus Tablet] 1 each PO DAILY [History] Cholecalciferol [Vitamin D3] 5,000 unit PO DAILY 11/06/17 [History] Cyclobenzaprine [Flexeril] 5 mg PO HS 11/06/17 [History] Furosemide [Lasix] 40 mg PO DAILY 11/06/17 [History] Hydrochlorothiazide [Hydrodiuril] 25 mg PO DAILY 11/06/17 [History] Hydrocodone/Acetaminophen [Vicodin 5-300 mg Tablet] 1 tab PO Q6HR PRN 11/06/17 [ History] Latanoprost Ophth [Xalatan 0.005%] 1 drops RIGHT EYE HS 11/06/17 [History] Levothyroxine Sodium [Synthroid] 75 mcg PO DAILY 11/06/17 [History] Losartan [Cozaar] 25 mg PO HS 11/06/17 [History] Lovastatin [Mevacor] 40 mg PO HS 11/06/17 [History] Metoprolol Succinate (ER) [Toprol Xl] 50 mg PO DAILY 11/06/17 [History] Naloxegol Oxalate [Movantik] 25 mg PO DAILY 11/06/17 [History] Omeprazole 40 mg PO DAILY 11/06/17 [History] Potassium Chloride ER [K-Dur 10] 10 meq PO BID 11/06/17 [History] Prolia (Unknown Dose) 1 dose IM DIRECTED 11/06/17 [History] rOPINIRole HCL [Requip] 4 mg PO HS 11/06/17 [History] traMADol HCL [Ultram] 50 mg PO QID PRN 11/06/17 [History] Aspirin 325 mg PO BID #120 tab 11/15/17 [Rx] Fondaparinux [Arixtra] 2.5 mg SQ DAILY #5 syringe 11/15/17 [Rx] HYDROcodone/APAP 5-325MG [[place] 5-325] 1 - 2 each PO Q4-6H PRN #90 tab 11/15/17 [Rx] Sennosides-Docusate Sodium [Senokot-S] 1 tab PO BID #60 tablet 11/15/17 [Rx] Follow up Appointment(s)/Referral(s): Sarah Fregoso, PAC [PHYSICIAN [employer]ER] - 2 Weeks Ambulatory/Diagnostic Orders: Continuous Passive Motion (CPM) Machine [DME.AMB1] Time Frame: 3 Weeks, Facility : [facility], Location: Case Management Activity/Diet/Wound Care/Special Instructions: May bear weight as tolerated with walker. CPM 5-6 hours daily. May shower if no drainage from incision. Discharge Disposition: TRANSFER TO SNF/ECF
[2017-11-16 08:18] VITALS: BP 154/85; PULSE 90; RESP 16
[2017-11-16] MEDS: METOPROLOL SUCCINATE (ER) 50 MG TAB.ER.24H PO SCH (09:04)
[2017-11-16] MEDS: MELOXICAM 7.5 MG TAB PO SCH (09:04)
[2017-11-16] MEDS: PANTOPRAZOLE 40 MG TABLET PO SCH (09:04)
[2017-11-16] MEDS: FONDAPARINUX 2.5 MG/0.5 ML SYRINGE SQ SCH (09:05)
[2017-11-16] MEDS: FUROSEMIDE 40 MG TAB PO SCH (09:05)
[2017-11-16] MEDS: POTASSIUM CHLORIDE ER 10 MEQ TAB.ER.PRT PO SCH (09:07)
[2017-11-16] MEDS: Naloxegol Oxalate [Movantik] 25 MG PO SCH (10:19)
--- NOTE | 2017-11-17 19:16 | PN ---
PROGRESS NOTE DATE OF SERVICE: 11/16/17 PRESENTING COMPLAINT: Knee surgery. INTERVAL HISTORY: This patient was seen by me on 11/16/17. Status post right knee surgery, feeling better tolerating a diet did work with therapy. No chest pain or short of breath. REVIEW OF SYSTEMS: Done for constitutional, cardiovascular, GI, pulmonary, musculoskeletal; relevant findings as above. CURRENT MEDICATIONS: Reviewed in the electronic records. PHYSICAL EXAMINATION: Temperature 98.3, pulse 90, respiration 16, blood pressure 154/85, pulse ox 94% on room air. General appearance: Sitting up comfortable. EYES: Pupils equal. Conjunctivae normal. HEENT external appearance of nose and ears normal. Oral cavity normal. Neck JVD not raised. Mass not palpable. Respiratory effort: Lungs are clear. Cardiovascular. HEART: Heart sounds muffled. No edema. ABDOMEN: Soft, nontender. Liver and spleen not palpable. Psychiatry: Alert and oriented times three. Mood and affect normal. INVESTIGATIONS: Hemoglobin 10.7. ASSESSMENT: 1. Right total knee arthroplasty. 2. Gastroesophageal reflux disease. 3. Essential hypertension. 4. Primary osteoarthritis. 5. Hypothyroid. 6. Restless legs syndrome. 7. Gait dysfunction at baseline uses a walker. 8. Chronic bilateral lower extremity lymphedema. 9. Coronary artery disease, prior history of stent. 10.Anxiety, not otherwise specified. 11.Hyperlipidemia. PLAN: Care was discussed with the patient. She is doing well. Continue current medications. MMODL / IJN: [id number] /
== END 2017-11-16 14:20 | DRG 470 ==
LOC: 2ORMAIN 13:09 → 3SUR 18:40
PROVIDERS: ADMIT Orthopaedic Surgery; ATTEND Orthopaedic Surgery
PROC: 0SRC0J9 Replacement of Right Knee Joint with Synthetic Substitute, Cemented, Open Approach (ICD-10-PCS; principal; 2017-11-13 14:45)
DX: M17.11 Unilateral primary osteoarthritis, right knee (principal); E03.9 Hypothyroidism, unspecified; E78.5 Hyperlipidemia, unspecified; F41.9 Anxiety disorder, unspecified; G25.81 Restless legs syndrome; I10 Essential (primary) hypertension; I25.10 Atherosclerotic heart disease of native coronary artery without angina pectoris; I89.0 Lymphedema, not elsewhere classified; K21.9 Gastro-esophageal reflux disease without esophagitis; M21.061 Valgus deformity, not elsewhere classified, right knee; M81.0 Age-related osteoporosis without current pathological fracture; R26.9 Unspecified abnormalities of gait and mobility; Z79.82 Long term (current) use of aspirin; Z79.899 Other long term (current) drug therapy; Z95.5 Presence of coronary angioplasty implant and graft; Z96.652 Presence of left artificial knee joint; Z88.0 Allergy status to penicillin; Z88.2 Allergy status to sulfonamides; Z88.1 Allergy status to other antibiotic agents; Z91.041 Radiographic dye allergy status
CPT/HCPCS: 71045; 84132; 85025; 88300; 94760

== ENCOUNTER → 2018-05-07 | Outpatient (CLI) | payer MEDICARE, OTHER ==
[~2018-05-07] MED LIST changes: +DENOSUMAB 60 MG/ML 1 ML SYRINGE SQ ONE; -DEXAMETHASONE SOD PHOSPHATE 10 MG/ML 1 ML VIAL IV ONE; -HYDROmorphone 0.5 MG/0.5 ML SYRINGE IVP PRN; -LIDOCAINE 1% 20 ML VIAL (10MG/ML) FOR IV START INTRADERMA PRN; -MELOXICAM 7.5 MG TAB PO ONE; -MIDAZOLAM 2 MG/2 ML VIAL IV PRN; -ONDANSETRON 4 MG/2 ML VIAL IVP ONE; -SCOPOLAMINE 1.5MG/72HR PATCH TRANSDERM ONE; -TRANEXAMIC ACID 1,000 MG in SODIUM CHLORIDE 0.9% 50 ML IVPB ONE; -ceFAZolin 2 GM in SODIUM CHLORIDE 0.9% 100 ML IVPB ONE; -ceFAZolin IN SWFI 2 GM/20 ML SYRINGE IVP ONE
[2018-05-07 13:52] VITALS: RESP 16
[2018-05-07 14:01] VITALS: BP 154/80; PULSE 79; TEMP 98
== END | disposition home or self-care (01) ==
LOC: PROCWHC3 13:46
PROVIDERS: ATTEND Family Medicine
DX: M81.0 Age-related osteoporosis without current pathological fracture (principal)
CPT/HCPCS: 96372; J0897

== ENCOUNTER → 2018-11-13 | Outpatient (CLI) | payer MEDICARE, OTHER ==
[2018-11-13 14:56] VITALS: BP 169/89; PULSE 76; RESP 16; TEMP 98
== END ==
LOC: PROCWHC3 14:27
PROVIDERS: ATTEND Family Medicine
DX: M81.0 Age-related osteoporosis without current pathological fracture (principal)
CPT/HCPCS: 96372; J0897

== ENCOUNTER → 2019-06-14 | Outpatient (CLI) | payer MEDICARE ==
--- NOTE | 2019-06-14 16:07 | CT ---
EXAMINATION TYPE: CT abdomen pelvis wo con DATE OF EXAM: 06/14/2019 COMPARISON: None HISTORY: 88-year-old female History of diverticulitis, hernia and changes in bowel habits. CT DLP: 414.7 mGycm. Automated exposure control for dose reduction was used. TECHNIQUE: Contiguous axial scanning of the abdomen and pelvis without IV contrast. Coronal and sagit kiran reconstructions performed. FINDINGS: Heart normal size without pericardial effusion. Coronary vessel calcifications are present. Bibasilar bronchiectasis with strandy scarring and emphysematous cyst in the left base. No pleural effusion. Tiny hiatal hernia. Noncontrast appearance of the liver, gallbladder, adrenal glands, spleen, and atrophic pancreas show no gross abnormality. The lack of IV contrast limits assessment. Tiny subcentimeter hypodensity lateral mid right kidney too small for accurate CT characterization, p robably a tiny cortical cyst. Suspect a 1.8 cm cyst posterior upper to midpole left kidney. Additional 1.4 cm cortical hypodensity lateral upper pole left kidney may represent a cyst as well. Moderate atherosclerotic calcifications abdominal aorta without aneurysm. Prominent vessel tortuosity is noted. No dilated small bowel, free fluid, or free air. There is a small left periumbilical fat-containing abdominal wall hernia measuring 1.8 cm wide and 2. 8 cm craniocaudal. The hernia neck measures 7 mm wide. There is some fat stranding and trace fluid wi thin the hernia sac. No mesenteric or retroperitoneal lymphadenopathy seen. Scattered nonenlarged mesenteric lymph nodes. Moderate stool burden. Sigmoid diverticulosis. No pericolonic inflammatory change. Bladder is urine distended. Bulging laxity of the levator ani musculature. The bladder base is locate d 2 cm below the pubococcygeal line. Uterus surgically absent. Neither ovary is clearly identified. N o abnormal fluid collection the pelvis or pelvic lymphadenopathy. Bones: Osteitis pubis. Degenerative changes at the hips. Osteopenia. Advanced hypertrophic facet arth ropathy with a grade 1, nearly grade 2 anterolisthesis at L5-S1. Grade 1 retrolisthesis at L1-L2 and L2-L4. Superior endplate deformity of L1. There is retropulsion of the superior endplate into the ventral sp inal canal with possible moderate spinal canal stenosis. Suspect chronic fracture given the lack of p aravertebral soft tissue swelling. Degenerated dextro convex scoliosis. IMPRESSION: 1. Small left periumbilical fat-containing hernia measuring 2.8 x 1.8 cm. The hernia neck measures 7 mm wide. Given fat stranding and trace fluid within the hernia sac, consider hernia incarceration an d/or stranding attenuation. 2. Sigmoid diverticulosis. Moderate stool burden. No evidence for acute diverticulitis. 3. Pelvic floor relaxation. The bladder base is located 2 cm below the pubococcygeal line. 4. Superior endplate fracture of L1, suspected chronic given the lack of surrounding soft tissue swe lling. Clinically correlate. Retropulsion results in a probable moderate spinal canal stenosis.
== END | disposition home or self-care (01) ==
LOC: RADCTMAIN 13:43
PROVIDERS: ATTEND Surgery Plastic and Reconstructive Surgery
DX: K42.9 Umbilical hernia without obstruction or gangrene (principal); K57.30 Diverticulosis of large intestine without perforation or abscess without bleeding
CPT/HCPCS: 74176

== ENCOUNTER → 2019-07-22 | Day surgery (SDC) | payer MEDICARE ==
[2019-07-19 09:04] VITALS: BMI 30.7
--- NOTE | 2019-07-21 19:58 | P.GSHP ---
History of Present Illness H&P Date: 07/22/19 CHIEF COMPLAINT: Colon screen HISTORY OF PRESENT ILLNESS: The patient is a 88-year-old female who presents for colon screen. Lower endoscopy was offered for further evaluation and management. PAST MEDICAL HISTORY: Please see list. PAST SURGICAL HISTORY: Please see list. MEDICATIONS: Please see list. ALLERGIES: Please see list. SOCIAL HISTORY: No illicit drug use FAMILY HISTORY: No reports of Crohn disease or ulcerative colitis. REVIEW OF ORGAN SYSTEMS: CONSTITUTIONAL: No reports of fevers or chills. PHYSICAL EXAM: VITAL SIGNS: Stable GENERAL: Well-developed pleasant in no acute distress. HEENT: No scleral icterus. Extraocular movements grossly intact. Moist buccal mucosa. NECK: Supple without lymphadenopathy. CHEST: Unlabored respirations. Equal bilateral excursions. CARDIOVASCULAR: Regular rate and rhythm. Distal 2+ pulses. ABDOMEN: Soft, nontender, nondistended. MUSCULOSKELETAL: No clubbing, cyanosis, or edema. ASSESSMENT: 1. Colon screen. PLAN: 1. Recommend proceeding with a lower endoscopy Past Medical History Past Medical History: Cancer, GERD/Reflux, Hypertension, Osteoarthritis (OA), Pneumonia, Thyroid Disorder, Vascular Disorder Additional Past Medical History / Comment(s): RLS, STATES LYMPHEDEMA LEGS AND FEET.ASPIRATION PNEUMONIA 3 yrs. ago, BASAL CELL SKIN CANCER, CONSTIPATION., "bad" right shoulder-minimal strength, diverticulitis, has umbilical hernia- states surgery in future History of Any Multi-Drug Resistant Organisms: None Reported Past Surgical History: Back Surgery, Heart Catheterization With Stent, Joint Replacement Additional Past Surgical History / Comment(s): CATARACTS, tonny. knee replacements, SURGERY ON VEINS (FOR EDEMA). Past Anesthesia/Blood Transfusion Reactions: No Reported Reaction Additional Past Anesthesia/Blood Transfusion Reaction / Comment(s): HX OF BLOOD TRANSFUSION (WITH CHILDBIRTH)- NO REACTION. Date of Last Stent Placement:: JANUARY 2001 Smoking Status: Never smoker - Past Family History Daughter(s) Additional Family Medical History / Comment(s): PTS GRANDAUGHTER- BREAST CANCER. Medications and Allergies Home Medications Medication Instructions Recorded Confirmed Type Spike/D3/Mag11/Zinc/Endoscopy Tech/Raffi/Bor 1 each PO DAILY 11/06/17 07/19/19 History [Caltrate 600+D Plus Tablet] Cholecalciferol [Vitamin D3 (25 50,000 unit PO Q7D 11/06/17 07/19/19 History Mcg = 1000 Iu)] Cyclobenzaprine [Flexeril] 5 mg PO HS 11/06/17 07/19/19 History Furosemide [Lasix] 40 mg PO DAILY 11/06/17 07/19/19 History Latanoprost Ophth [Xalatan 0.005%] 1 drops BOTH EYES HS 11/06/17 07/19/19 History Levothyroxine Sodium [Synthroid] 75 mcg PO DAILY 11/06/17 07/19/19 History Losartan [Cozaar] 25 mg PO HS 11/06/17 07/19/19 History Lovastatin [Mevacor] 40 mg PO HS 11/06/17 07/19/19 History Metoprolol Succinate (ER) [Toprol 50 mg PO DAILY 11/06/17 07/19/19 History XL] Naloxegol Oxalate [Movantik] 25 mg PO DAILY 11/06/17 07/19/19 History Omeprazole 40 mg PO DAILY 11/06/17 07/19/19 History Potassium Chloride ER [K-Dur 10] 10 meq PO BID 11/06/17 07/19/19 History Prolia (Unknown Dose) 1 dose IM DIRECTED 11/06/17 07/19/19 History rOPINIRole HCL [Requip] 4 mg PO HS 11/06/17 07/19/19 History HYDROcodone/APAP 5-325MG [[place] 1 - 2 each PO Q4-6H PRN #90 tab 11/15/17 07/19/19 Rx 5-325] Sennosides-Docusate Sodium 1 tab PO BID #60 tablet 11/15/17 07/19/19 Rx [Senokot-S] Aspirin 81 mg PO DAILY 07/19/19 07/19/19 History Allergies Allergy/AdvReac Type Severity Reaction Status Date / Time Iodinated Contrast Media Allergy Unknown Hearing Verified 07/19/19 08:39 [Iodinated Contrast- Oral Loss and IV Dye] iodine Allergy Unknown Verified 07/19/19 08:39 Penicillins Allergy Rash/Hives Verified 07/19/19 08:39 Sulfa (Sulfonamide Allergy Rash/Hives Verified 07/19/19 08:39 Antibiotics) sulfamethoxazole Allergy Rash/Hives Verified 07/19/19 08:39 [From Bactrim] trimethoprim [From Bactrim] Allergy Rash/Hives Verified 07/19/19 08:39 cortisone AdvReac facial Verified 07/19/19 08:40 flushing
[~2019-07-22] MED LIST changes: -DENOSUMAB 60 MG/ML 1 ML SYRINGE SQ ONE; +LACTATED RINGERS 1,000 ML IV SCH; +LIDOCAINE 1% 20 ML VIAL (10MG/ML) FOR IV START INTRADERMA PRN; +PROPOFOL 10 MG/ML 20 ML VIAL IV ONE
[2019-07-22 10:23] VITALS: RESP 18; TEMP 97.8
--- NOTE | 2019-07-22 11:20 | P.PCN ---
Date of Procedure: 07/22/19 Description of Procedure: PREOPERATIVE DIAGNOSIS: Diverticulitis, sigmoid colon POSTOPERATIVE DIAGNOSIS: Diverticulosis, scattered. Poor bowel prep OPERATION: Colonoscopy to the ascending colon SURGEON: Gabi Sheffield MD. ANESTHESIA: MAC. INDICATIONS: The patient is a 88-year-old female who presents with recurrent bouts of diverticulitis including left lower quadrant abdominal pain. Lower endoscopy was FURTHER assessment. Benefits and risks were described and informed consent was obtained. DESCRIPTION OF PROCEDURE: The patient had undergone Gatorade, MiraLAX and Dulcolax prep. Shee had been brought into the operating room and laid in the left lateral decubitus position. After adequate intravenous sedation, the rectum was examined with 2% lidocaine jelly. No external hemorrhoids were encountered. The rectal tone was loose. No lesions were palpated in the rectal vault. The prep was poor with moderate liquid stool prohibiting clear assessment of the mucosa of the ascending colon. An Olympus colonoscope was to the descending colon. The scope was removed with moderate sigmoid diverticulosis. No large colonic polyps were found. No evidence of focal colitis was found. Retroflexion of the scope demonstrated grade 2 internal hemorrhoids without active bleeding or inflammation. The colon was desufflated. The patient had tolerated the procedure well. Withdrawal time was over 6 minutes. FINDINGS: Aronchick preparation quality scale 4 (1-5) Internal hemorrhoids, grade 2 External prolapsed hemorrhoids, grade 1 Moderate sigmoid diverticulosis No arteriovenous malformations. No adenomatous polyps. No focal colitis. RECOMMENDATIONS: Lower endoscopy as needed Plan - Discharge Summary Discharge Rx Participant: No New Discharge Prescriptions: No Action Metoprolol Succinate (ER) [Toprol XL] 50 mg PO DAILY Naloxegol Oxalate [Movantik] 25 mg PO DAILY Lovastatin [Mevacor] 40 mg PO HS rOPINIRole HCL [Requip] 4 mg PO HS Levothyroxine Sodium [Synthroid] 75 mcg PO DAILY Cyclobenzaprine [Flexeril] 5 mg PO HS Potassium Chloride ER [K-Dur 10] 10 meq PO BID Losartan [Cozaar] 25 mg PO HS Latanoprost Ophth [Xalatan 0.005%] 1 drops BOTH EYES HS Cholecalciferol [Vitamin D3 (25 Mcg = 1000 Iu)] 50,000 unit PO Q7D Prolia (Unknown Dose) 1 dose IM DIRECTED Omeprazole 40 mg PO DAILY Furosemide [Lasix] 40 mg PO DAILY HYDROcodone/APAP 5-325MG [[place] 5-325] 1 - 2 each PO Q4-6H PRN #90 tab PRN Reason: Pain Sennosides-Docusate Sodium [Senokot-S] 1 tab PO BID #60 tablet Aspirin 81 mg PO DAILY Ondansetron [Zofran] 4 mg PO Q12HR PRN PRN Reason: Nausea Discharge Medication List Cholecalciferol [Vitamin D3 (25 Mcg = 1000 Iu)] 50,000 unit PO Q7D 11/06/17 [History] Cyclobenzaprine [Flexeril] 5 mg PO HS 11/06/17 [History] Furosemide [Lasix] 40 mg PO DAILY 11/06/17 [History] Latanoprost Ophth [Xalatan 0.005%] 1 drops BOTH EYES HS 11/06/17 [History] Levothyroxine Sodium [Synthroid] 75 mcg PO DAILY 11/06/17 [History] Losartan [Cozaar] 25 mg PO HS 11/06/17 [History] Lovastatin [Mevacor] 40 mg PO HS 11/06/17 [History] Metoprolol Succinate (ER) [Toprol XL] 50 mg PO DAILY 11/06/17 [History] Naloxegol Oxalate [Movantik] 25 mg PO DAILY 11/06/17 [History] Omeprazole 40 mg PO DAILY 11/06/17 [History] Potassium Chloride ER [K-Dur 10] 10 meq PO BID 11/06/17 [History] Prolia (Unknown Dose) 1 dose IM DIRECTED 11/06/17 [History] rOPINIRole HCL [Requip] 4 mg PO HS 11/06/17 [History] HYDROcodone/APAP 5-325MG [[place] 5-325] 1 - 2 each PO Q4-6H PRN #90 tab 11/15/17 [Rx] Sennosides-Docusate Sodium [Senokot-S] 1 tab PO BID #60 tablet 11/15/17 [Rx] Aspirin 81 mg PO DAILY 07/19/19 [History] Ondansetron [Zofran] 4 mg PO Q12HR PRN 07/22/19 [History] Follow up Appointment(s)/Referral(s): Gabi Sheffield MD [STAFF PHYSICIAN] - 07/25/19 Patient Instructions/Handouts: Diverticulitis Diet (DC), Diverticulitis (GEN) Activity/Diet/Wound Care/Special Instructions: Lower endoscopy as needed Discharge Disposition: HOME SELF-CARE
[2019-07-22 11:49] VITALS: BP 156/81; PULSE 77
== END | disposition home or self-care (01) ==
LOC: ORWHC2ENDO 09:37
PROVIDERS: ATTEND Surgery Plastic and Reconstructive Surgery
DX: K57.30 Diverticulosis of large intestine without perforation or abscess without bleeding (principal); K64.0 First degree hemorrhoids; K64.1 Second degree hemorrhoids; I25.10 Atherosclerotic heart disease of native coronary artery without angina pectoris; I10 Essential (primary) hypertension; K21.9 Gastro-esophageal reflux disease without esophagitis; M19.90 Unspecified osteoarthritis, unspecified site; E07.9 Disorder of thyroid, unspecified; G25.81 Restless legs syndrome; K42.9 Umbilical hernia without obstruction or gangrene; I89.0 Lymphedema, not elsewhere classified; Z87.01 Personal history of pneumonia (recurrent); Z85.828 Personal history of other malignant neoplasm of skin; Z95.5 Presence of coronary angioplasty implant and graft; Z96.653 Presence of artificial knee joint, bilateral; Z80.3 Family history of malignant neoplasm of breast; Z79.82 Long term (current) use of aspirin; Z79.890 Hormone replacement therapy; Z79.891 Long term (current) use of opiate analgesic; Z79.899 Other long term (current) drug therapy; Z91.041 Radiographic dye allergy status; Z88.0 Allergy status to penicillin; Z88.2 Allergy status to sulfonamides; Z88.8 Allergy status to other drugs, medicaments and biological substances; Z91.048 Other nonmedicinal substance allergy status
CPT/HCPCS: 45378; J2704